=== PATIENT | female | born 1950 | race Caucasian/White ===

== ENCOUNTER 2018-03-22 13:02 | Inpatient (IN) | payer SELFPAY ==
[~2018-03-22] VITALS: Ht 167.6 cm; Wt 50.8 kg
[2018-03-22] MEDS ORDERED: SODIUM CHLORIDE 0.9% 1,000 ML IV ONE (14:10)
[2018-03-22 15:19] LABS: HEMATOCRIT. 22.4 % (36.0-48.0); HEMOGLOBIN. 7.3 g/dL (12.0-16.0); MEAN CORPUSCULAR VOLUME 76.2 fL (81.0-99.0); MEAN PLATELET VOLUME 6.4 fl (7.4-10.4); PLATELET 758 x1000/uL (130-400); RED BLOOD CELL COUNT 2.93 mill/uL (4.2-5.4); RED CELL DISTRIBUTION WIDTH 21.7 % (11.6-14.6)
[2018-03-22 15:22] LABS: CHLORIDE 101 mEq/L (98-107)
[2018-03-22 15:33] LABS: B-HCG QUANTITATIVE 119 mIU/mL (<3)
[2018-03-22 15:57] LABS: PLATELET ESTIMATE INCREASED
[2018-03-22] MEDS ORDERED: SODIUM CHLORIDE 0.9% 1000ML BAG (SEPSIS BOLUS) IV NR (16:30)
[2018-03-22 16:53] LABS: CLARITY URINE CLEAR (CLEAR); COLOR URINE ORANGE (YELLOW); KETONES URINE NEGATIVE (NEGATIVE); LEUKOCYTE ESTERASE URINE 3+ (NEGATIVE); NITRITE URINE NEGATIVE (NEGATIVE); OCCULT BLOOD URINE 3+ (NEGATIVE); PROTEIN URINE 2+ (NEGATIVE)
[2018-03-22 17:34] LABS: BASOPHILS % 0.3 % (0.0-2.0); EOSINOPHILS % 0.1 % (0.0-5.0); LYMPHOCYTES % 8.6 % (20.0-50.0); MEAN CORPUSCULAR HEMOGLOBIN 25.4 pg (28.0-32.0); MEAN CORPUSCULAR VOLUME 76.4 fL (81.0-99.0); MONOCYTES % 3.2 % (2.0-8.0); NEUTROPHILS % 87.8 % (40.0-76.0); PLATELET 700 x1000/uL (130-400); RED BLOOD CELL COUNT 2.56 mill/uL (4.2-5.4); RED CELL DISTRIBUTION WIDTH 21.1 % (11.6-14.6)
[2018-03-22 17:35] LABS: HEMATOCRIT. 19.6 % (36.0-48.0); HEMOGLOBIN. 6.5 g/dL (12.0-16.0)
[2018-03-22] MEDS ORDERED: CEFTRIAXONE 1 G PREMIX 50 ML IV ONE (19:15)
[2018-03-22] MEDS ORDERED: METRONIDAZOLE 500 MG PREMIX 100 ML IV ONE (19:15)
[2018-03-22] MEDS ORDERED: ACETAMINOPHEN 325MG TABLET PO ONE (20:30)
[2018-03-22] MEDS ORDERED: ONDANSETRON HCL 4MG/2ML VIAL IV PRN (23:45)
[2018-03-22] MEDS ORDERED: ACETAMINOPHEN 325MG TABLET PO PRN (23:45)
[2018-03-22] MEDS ORDERED: DOCUSATE SODIUM 100MG CAPSULE PO PRN (23:45)
[2018-03-22] MEDS ORDERED: CLONIDINE 0.1MG TABLET PO PRN (23:45)
[2018-03-22 23:59] VITALS: BP 118/64
[2018-03-23] VITALS (15 sets, daily range): BP systolic 103–120; BP diastolic 55–69
[2018-03-23] MEDS ORDERED: ONDANSETRON 4MG ODT PO PRN (00:15)
[2018-03-23] MEDS: SODIUM CHLORIDE 0.45% 1,000 ML IV SCH (00:28)
[2018-03-23] MEDS: HYDROCODONE/ACETAMINOPHEN 5/325MG TABLET PO PRN ×3 (00:29→15:20)
[2018-03-23 07:09] LABS: BASOPHILS % 0.6 % (0.0-2.0); EOSINOPHILS % 0.2 % (0.0-5.0); HEMATOCRIT. 21.4 % (36.0-48.0); HEMOGLOBIN. 7.1 g/dL (12.0-16.0); LYMPHOCYTES % 9.6 % (20.0-50.0); MEAN CORPUSCULAR HEMOGLOBIN 26.1 pg (28.0-32.0); MEAN CORPUSCULAR VOLUME 78.7 fL (81.0-99.0); MEAN PLATELET VOLUME 6.4 fl (7.4-10.4); MONOCYTES % 3.8 % (2.0-8.0); NEUTROPHILS % 85.8 % (40.0-76.0); PLATELET 538 x1000/uL (130-400); RED BLOOD CELL COUNT 2.72 mill/uL (4.2-5.4); RED CELL DISTRIBUTION WIDTH 19.3 % (11.6-14.6)
[2018-03-23 08:40] LABS: CHLORIDE 104 mEq/L (98-107)
[2018-03-23] MEDS ORDERED: PNEUMOCOCCAL 23-VAL P-SAC VAC 0.5 ML IM ONE (12:00)
[2018-03-23 16:41] LABS: BASOPHILS % 0.5 % (0.0-2.0); EOSINOPHILS % 0.2 % (0.0-5.0); LYMPHOCYTES % 7.5 % (20.0-50.0); MEAN CORPUSCULAR HEMOGLOBIN 25.6 pg (28.0-32.0); MEAN CORPUSCULAR VOLUME 78.7 fL (81.0-99.0); MEAN PLATELET VOLUME 6.4 fl (7.4-10.4); MONOCYTES % 4.3 % (2.0-8.0); NEUTROPHILS % 87.5 % (40.0-76.0); PLATELET 526 x1000/uL (130-400); RED BLOOD CELL COUNT 2.67 mill/uL (4.2-5.4); RED CELL DISTRIBUTION WIDTH 18.9 % (11.6-14.6)
[2018-03-23 16:47] LABS: HEMOGLOBIN. 6.8 g/dL (12.0-16.0)
[2018-03-24] VITALS: BP 123/56
[2018-03-24 00:47] LABS: HEMATOCRIT 28.8 % (36.0-48.0); HEMOGLOBIN 9.5 g/dL (12.0-16.0)
[2018-03-24 01:00] LABS: INR 1.1; PROTHROMBIN TIME 11.9 sec (9.4-11.6)
[2018-03-24] MEDS: HYDROCODONE/ACETAMINOPHEN 5/325MG TABLET PO PRN ×3 (01:15→21:08)
[2018-03-24 04:00] VITALS: BP 110/57
[2018-03-24 08:00] VITALS: BP 118/67
[2018-03-24 08:08] LABS: BASOPHILS % 0.7 % (0.0-2.0); EOSINOPHILS % 0.2 % (0.0-5.0); HEMATOCRIT. 28.6 % (36.0-48.0); HEMOGLOBIN. 9.6 g/dL (12.0-16.0); LYMPHOCYTES % 9.6 % (20.0-50.0); MEAN CORPUSCULAR HEMOGLOBIN 27.6 pg (28.0-32.0); MEAN CORPUSCULAR VOLUME 82.4 fL (81.0-99.0); MEAN PLATELET VOLUME 6.7 fl (7.4-10.4); MONOCYTES % 5.2 % (2.0-8.0); NEUTROPHILS % 84.3 % (40.0-76.0); PLATELET 491 x1000/uL (130-400); RED BLOOD CELL COUNT 3.47 mill/uL (4.2-5.4)
[2018-03-24 08:47] LABS: CHLORIDE 102 mEq/L (98-107)
[2018-03-24] MEDS: SODIUM CHLORIDE 0.45% 1,000 ML IV SCH ×2 (09:00→09:03)
[2018-03-24] MEDS ORDERED: POTASSIUM CHLORIDE 20MEQ TABLET SR PO SCH (10:30)
[2018-03-24 11:20] LABS: TOTAL IRON BINDING CAPACITY 220 ug/dL (250-450)
[2018-03-24 12:00] VITALS: BP 116/66
[2018-03-24 16:00] VITALS: BP 135/64
[2018-03-24 20:00] VITALS: BP 112/64
[2018-03-25] VITALS: BP 108/67
[2018-03-25] MEDS: HYDROCODONE/ACETAMINOPHEN 5/325MG TABLET PO PRN ×2 (01:36→09:05)
[2018-03-25] MEDS: SODIUM CHLORIDE 0.45% 1,000 ML IV SCH (02:44)
[2018-03-25 04:00] VITALS: BP 126/66
[2018-03-25 08:00] VITALS: BP 123/67
[2018-03-25 08:59] LABS: HEMATOCRIT. 29.6 % (36.0-48.0); HEMOGLOBIN. 9.8 g/dL (12.0-16.0); MEAN CORPUSCULAR HEMOGLOBIN 27.2 pg (28.0-32.0); MEAN CORPUSCULAR VOLUME 82.1 fL (81.0-99.0); MEAN PLATELET VOLUME 6.5 fl (7.4-10.4); PLATELET 543 x1000/uL (130-400); RED CELL DISTRIBUTION WIDTH 17.6 % (11.6-14.6)
[2018-03-25 10:43] LABS: CHLORIDE 101 mEq/L (98-107)
[2018-03-25 11:01] LABS: PLATELET ESTIMATE INCREASED
[2018-03-25 12:00] VITALS: BP 110/61
[2018-03-25] MEDS ORDERED: FERROUS SULFATE 325MG TABLET PO SCH (12:15)
[2018-03-25 14:20] VITALS: BP 110/61
== END 2018-03-25 14:46 | disposition home or self-care (01) | DRG 532 ==
LOC: ER 13:19 → 5WST 14:12 → EDBEDREQSVC 16:19 → EDBEDREQ 16:19 → ENRESERV 20:34
PROVIDERS: ADMIT Hospitalist; ATTEND Hospitalist
PROC: 30233N1 Transfusion of Nonautologous Red Blood Cells into Peripheral Vein, Percutaneous Approach (ICD-10-PCS; principal; 2018-03-22)
DX: N93.9 Abnormal uterine and vaginal bleeding, unspecified (principal); D62 Acute posthemorrhagic anemia; D25.9 Leiomyoma of uterus, unspecified; D72.829 Elevated white blood cell count, unspecified; E83.52 Hypercalcemia; K59.00 Constipation, unspecified; N28.89 Other specified disorders of kidney and ureter; Z79.899 Other long term (current) drug therapy
CPT/HCPCS: 36415; 71045; 74176; 76830; 76856; 80053; 81003; 82962; 83540; 83550; 83605; 83735; 84702; 85014; 85018; 85025; 85049; 85384; 85610; 86850; 86900; 86920; 87040; 87086; 90732; 93005; 96361; 96365; 96375; 99291; J0696; J3490; J7030; J7050; P9016; Q0162